=== PATIENT | female | born 1955 | race Caucasian/White ===

== ENCOUNTER 2019-02-16 20:19 | Emergency (ER) | payer SELFPAY ==
[~2019-02-16] VITALS: Ht 170.2 cm; Wt 57.6 kg
[2019-02-16 21:33] VITALS: BP 147/84
--- NOTE | 2019-02-17 02:04 | NUR ---
TAP CARD PROVIDED TO PT.
--- NOTE | 2019-02-17 02:04 | NUR ---
Patient discharged to home in stable condition. Written and verbal after care instructions given. Patient verbalizes understanding of instruction. Pt ambulatory with a steady gait
== END 2019-02-17 02:04 | disposition home or self-care (01) ==
LOC: ER 20:19
DX: Z76.0 Encounter for issue of repeat prescription (principal); I10 Essential (primary) hypertension; Z88.1 Allergy status to other antibiotic agents